=== PATIENT | female | born 1995 | race Caucasian/White ===

== ENCOUNTER 2017-08-20 10:34 | Emergency (ER) | END 2017-08-20 15:10 | disposition home or self-care (01) ==

== ENCOUNTER 2017-11-24 19:22 | Outpatient (CLI) | END 2017-11-25 00:47 | disposition home or self-care (01) ==

== ENCOUNTER 2018-02-21 11:25 | Outpatient (CLI) | END 2018-02-21 16:45 | disposition home or self-care (01) ==